=== PATIENT | male | born 1980 | race Caucasian/White ===

== ENCOUNTER 2019-07-19 20:23 | Outpatient (CLI) | payer MEDICARE, OTHER | END 2019-07-20 06:16 | disposition home or self-care (01) | LOC: SLEEP 20:23 | PROVIDERS: ATTEND Nurse Practitioner Community Health | DX: G47.33 Obstructive sleep apnea (adult) (pediatric) (principal); G47.00 Insomnia, unspecified; G47.419 Narcolepsy without cataplexy | CPT/HCPCS: 95810 ==